=== PATIENT | male | born 1965 | race Caucasian/White ===

== ENCOUNTER → 2021-09-25 | Outpatient (CLI) | payer OTHER ==
[2021-09-25 17:23] LABS: ALANINE AMINOTRANSFERASE 32 U/L (0-55); ALBUMIN 4.8 GM/DL (3.2-4.5); ALKALINE PHOSPHATASE 72 U/L (40-136); BILIRUBIN,TOTAL 0.3 MG/DL (0.1-1.0); BUN/CREATININE RATIO 14; CALCIUM 9.3 MG/DL (8.5-10.1); CARBON DIOXIDE 25 MMOL/L (21-32); CHLORIDE 102 MMOL/L (98-107); CREATININE SERUM 1.06 MG/DL (0.60-1.30); GFR ESTIMATED 72; GLUCOSE 112 MG/DL (70-105); POTASSIUM 4.1 MMOL/L (3.6-5.0); SODIUM 138 MMOL/L (135-145); TOTAL PROTEIN 7.9 GM/DL (6.4-8.2)
[2021-09-26 09:55] LABS: CHOLESTEROL 242 MG/DL (< 200); HDL CHOLESTEROL 34 MG/DL (40-60); TRIGLYCERIDES 326 MG/DL (<150); VLDL CHOLESTEROL 65 MG/DL (5-40)
== END ==
LOC: LAB FS 14:54
PROVIDERS: ATTEND Registered Nurse Emergency
DX: Z00.00 Encounter for general adult medical examination without abnormal findings (principal)
CPT/HCPCS: 36415; 80053; 80061

== ENCOUNTER 2022-10-06 12:11 | Emergency (ER) | payer OTHER ==
[~2022-10-06] VITALS: Ht 188 cm; Wt 79.4 kg
--- NOTE | 2022-10-06 12:32 | ED Neck-Back Pain/Injury ---
General Chief Complaint: Head/Cervical Problems Stated Complaint: NECK PAIN Source of Information: Patient Exam Limitations: No Limitations History of Present Illness Date Seen by Provider: Oct 06, 2022 Time Seen by Provider: 12:18 Initial Comments 57-year-old male with past medical history of hypertension coming in due to neck pain radiating down his left arm. Is been happening for over 2 weeks. There is no injury associated with it. Saw his primary care provider as well as a chiropractor. Was started on Flexeril as well as 600 mg of ibuprofen. He states the Flexeril helped somewhat, but the ibuprofen did not really help. Last took Flexeril yesterday, last took ibuprofen many days ago. This is never happened before. He does have an appointment with a spine surgeon on October 18. Denies any spinal surgical history. Otherwise denying any other acute complaints. Allergies and Home Medications Allergies Coded Allergies: No Known Drug Allergies (Unverified , 10/06/22) Patient Home Medication List Home Medication List Reviewed: Yes Acetaminophen (Tylenol Extra Strength) 500 Mg Tablet, 1,000 MG PO Q6H Prescribed by: LIBBY WEST on 10/06/22 1310 Gabapentin (Gabapentin) 100 Mg Capsule, 300 MG PO Q8H Prescribed by: LIBBY WEST on 10/06/22 1310 Review of Systems Constitutional: No fever EENTM: no symptoms reported Respiratory: no symptoms reported Cardiovascular: no symptoms reported Gastrointestinal: no symptoms reported Genitourinary: no symptoms reported Musculoskeletal: see HPI Skin: no symptoms reported Psychiatric/Neurological: No Symptoms Reported All Other Systems Reviewed Negative Unless Noted: Yes Past Alwxcfy-Gbtmuk-Qtnwyf Hx Patient Social History Tobacco Use?: Yes Substance use?: No Alcohol Use?: No Past Medical History Surgeries: Yes ([facility] eye surgery) Physical Exam Vital Signs Capillary Refill : Height, Weight, BMI Height: '" Weight: lbs. oz. kg; BMI Method: General Appearance: No Apparent Distress, WD/WN HEENT: PERRL/EOMI, Normal ENT Inspection, Pharynx Normal Neck: Full Range of Motion, Normal Inspection, Non Tender, Supple Cardiovascular: Regular Rate, Rhythm, No Edema, Normal Peripheral Pulses Respiratory: Chest Non Tender, Lungs Clear, Normal Breath Sounds, No Accessory Muscle Use, No Respiratory Distress Gastrointestinal: Normal Bowel Sounds, Non Tender, Soft; No Distended, No Guarding Back: Normal Inspection, No CVA Tenderness, Other (Left trap tenderness, Spurling positive) Extremity: Normal Capillary Refill, Normal Inspection, Normal Range of Motion, Non Tender, No Calf Tenderness, No Pedal Edema Neurologic/Psychiatric: Alert, Oriented x3, No Motor/Sensory Deficits, Normal Mood/Affect, lay out helper II-XII Norm as Tested Skin: Normal Color, Warm/Dry Lymphatic: No Adenopathy Progress/Results/Core Measures Results/Orders My Orders Orders - LIBBY WEST MD Cervical Spine 3 View Or Less (10/06/22 12:29) Ketorolac Injection (Toradol Injection) (10/06/22 12:45) Orphenadrine Inj (Ed Only) (Norflex Inje (10/06/22 12:45) Dexamethasone Oral Soln (Ed) (Decadron I (10/06/22 12:32) Gabapentin Capsule/Tablet (Neurontin Cap (10/06/22 12:45) Medications Given in ED Current Medications Medications Dose Ordered Sig/Rory Route Start Time Stop Time Status Last Admin Dose Admin Gabapentin 300 mg ONCE ONCE PO 10/06/22 12:45 10/06/22 12:46 DC 10/06/22 13:00 300 MG Ketorolac Tromethamine 15 mg ONCE ONCE IM 10/06/22 12:45 10/06/22 12:46 DC 10/06/22 12:59 15 MG Orphenadrine Citrate 60 mg ONCE ONCE IM 10/06/22 12:45 10/06/22 12:46 DC 10/06/22 12:59 60 MG Progress Progress Note : Progress Note 57-year-old male with above history coming in due to neck pain. ABCs were intact and vitals are stable on presentation. Physical exam consistent with cervical radiculopathy including a positive Spurling test. X-ray with no fr acture or dislocation. He will given medications for symptomatic management. He has definitive follow-up with a spinal surgeon already on October 18. Departure Impression Primary Impression: Cervical radiculopathy Disposition: HOME, SELF-CARE Condition: Stable Departure-Patient Inst. Decision time for Depature: 13:03 Referrals: RICKEY SOUTH MD (PCP) Primary Care Physician Patient Instructions: Radiculopathy Add. Discharge Instructions: You do have some arthritis in your neck, this is pushing on some nerves that are going down your left arm causing the pain and burning. We will try a few different medicines to try to help with this. The definitive management would be follow-up with your surgeon on October 18. Continue to take the Flexeril that you are already prescribed as needed with the medicines that you are given Scripts Cyclobenzaprine HCl (Cyclobenzaprine HCl) 10 Mg Tablet 10 MG PO Q8H PRN for SPASMS for 5 Days, #15 TAB 0 Refills Prov: LIBBY WEST MD 10/06/22 Acetaminophen (Tylenol Extra Strength) 500 Mg Tablet 1000 MG PO Q6H for 7 Days, #56 TAB Prov: LIBBY WEST MD 10/06/22 Gabapentin (Gabapentin) 100 Mg Capsule 300 MG PO Q8H for Neuropathic pain for 14 Days, #126 CAP Prov: LIBBY WEST MD 10/06/22 Work/School Note: Work Release Form Date Seen in the Emergency Department: Oct 06, 2022 Return to Work: Oct 08, 2022 Restrictions: No Restrictions LIBBY WEST MD Oct 06, 2022 12:32
[2022-10-06] MEDS ORDERED: GABAPENTIN 100 MG (NEURONTIN) CAP PO ONE (12:45)
[2022-10-06] MEDS ORDERED: KETOROLAC 15 MG/ML VIAL IM ONE (12:45)
[2022-10-06] MEDS ORDERED: ORPHENADRINE 60 MG/2 ML (NORFLEX) AMP (ED ONLY) IM ONE (12:45)
--- NOTE | 2022-10-06 12:53 | Diagnostic Imaging Report ---
INDICATION: Neck pain radiating to the left arm. EXAMINATION: Cervical spine 10/06/2022. FINDINGS: 4 views of the cervical spine demonstrate normal alignment and height of the vertebral bodies. Intervertebral disc space narrowing and endplate sclerosis and anterior spurring noted at C5-C6. Prevertebral soft tissues unremarkable. Visualized lung apices clear. IMPRESSION: 1. Chronic findings especially at C5-C6 with no acute fractures identified. Dictated by: Dictated on workstation # [id number]
[2022-10-06] MEDS ORDERED: GABA-486 PO (13:10)
[2022-10-06] MEDS ORDERED: ACET-2267 PO (13:10)
[2022-10-06] MEDS ORDERED: CYCL10TA25 PO (13:17)
== END 2022-10-06 13:13 | disposition home or self-care (01) ==
LOC: EDUNIT# 12:11 → ER FS 12:12
DX: M54.12 Radiculopathy, cervical region (principal); Z28.310 Unvaccinated for COVID-19
CPT/HCPCS: 72040